=== PATIENT | male | born 1960 | race Two or more races ===

== ENCOUNTER → 2018-08-16 | Day surgery (SDC) | payer OTHER | END | disposition home or self-care (01) | LOC: ADM 08-10 10:15 → CIR.AMB 08-10 10:15 | DX: C20 Malignant neoplasm of rectum (principal); K64.2 Third degree hemorrhoids ==

== ENCOUNTER → 2019-02-02 | Day surgery (SDC) | payer OTHER | END | disposition home or self-care (01) | LOC: ADM 01-25 12:45 → AMB-ENDOS 01-25 12:45 | DX: D12.2 Benign neoplasm of ascending colon (principal); D12.4 Benign neoplasm of descending colon; K64.1 Second degree hemorrhoids ==